=== PATIENT | female | born 1995 | race Caucasian/White ===

== ENCOUNTER → 2021-02-03 09:15 | Outpatient (BNVA) | payer SELFPAY | PROVIDERS: PCP Internal Medicine ==

== ENCOUNTER 2023-12-16 11:05 | Outpatient (REF) | payer MEDICAID, SELFPAY ==
[2023-12-19 01:57] LABS: TS Negative Control Passed; TS Panel A 0; TS Panel B 1; TS Positive Control Passed; TSpotTB Negative (Negative)
== END 2023-12-16 11:06 | disposition home or self-care (01) ==
LOC: HO.HHCL 11:05
PROVIDERS: Visit Provider General Practice
DX: Z02.1 Encounter for pre-employment examination (principal)
CPT/HCPCS: 36415; 86481